=== PATIENT | female | born 2000 | race Caucasian/White ===

== ENCOUNTER 2022-04-12 14:04 | Inpatient (IN) | payer OTHER ==
[~2022-04-12] VITALS: Ht 162.6 cm; Wt 76.7 kg
[2022-04-12 14:00] VITALS: BP 105/61
[2022-04-12 15:29] LABS: PROTHROMBIN TIME 9.1 secs (10.8-13.4)
[2022-04-12 15:36] LABS: ANION GAP 15.9 (8-16); CARBON DIOXIDE 22.2 mmol/L (21-32); CREATININE 0.5 mg/dL (0.6-1.3); POTASSIUM 4.1 mmol/L (3.5-5.1); TOTAL BILIRUBIN 0.2 mg/dL (0.0-1.0)
[2022-04-12 15:37] LABS: BASOPHILS % (AUTO) 0.1 % (0.0-2.0); EOSINOPHILS # (AUTO) 0.1 K/uL (0-0.4); EOSINOPHILS % (AUTO) 0.7 % (0.0-4.0); HEMATOCRIT 31.5 % (36-48); HEMOGLOBIN 10.6 g/dL (12.0-16.0); LYMPHOCYTES # (AUTO) 1.9 K/uL (2.5-16.5); LYMPHOCYTES % (AUTO) 23.7 % (20.5-51.1); MEAN CORPUSCULAR HEMOGLOBIN 29 pg (27-31); MEAN CORPUSCULAR HGB CONC 34 g/dL (33-37); MONOCYTES # (AUTO) 0.5 K/uL (0.8-1.0); MONOCYTES % (AUTO) 5.8 % (1.7-9.3); NEUTROPHILS # (AUTO) 5.7 K/uL (1.8-7.7); NEUTROPHILS % (AUTO) 69.7 % (42.2-75.2); PLATELET COUNT (AUTO) 272 K/uL (140-450); RED BLOOD CELL COUNT(AUTO) 3.62 MIL/uL (4.20-5.40); RED CELL DISTRIBUTION WIDTH 15.1 % (11.6-13.7); WHITE BLOOD COUNT (AUTO) 8.2 K/uL (4.5-11.0)
[2022-04-12] MEDS: LACTATED RINGERS 1,000 ML IV SCH ×2 (15:40→17:28)
[2022-04-12 17:02] LABS: BILIRUBIN,URINE NEGATIVE (NEGATIVE); BLOOD, URINE TRACE-L (NEGATIVE); COLOR,URINE YELLOW (YELLOW); LEUKOCYTE ESTERASE ,URINE 3+ (NEGATIVE); NITRITE, URINE NEGATIVE (NEGATIVE); PH,URINE 6.5 (5.0-9.0); UGLUCOSE NEGATIVE (NEGATIVE)
[2022-04-12 17:18] LABS: APPEARANCE,URINE HAZY (CLEAR)
[2022-04-12 17:33] LABS: RBC,URINE 0-5 /HPF (0-5)
[2022-04-12] MEDS ORDERED: ceFAZolin 1,000 MG VIAL ONE (20:23)
[2022-04-12] MEDS ORDERED: MIDAZOLAM 2 MG/2 ML VIAL ONE (20:34)
[2022-04-12] MEDS ORDERED: MORPHINE PRES FREE 10 MG/10 ML AMP IV ONE (20:34)
[2022-04-12] MEDS ORDERED: diphenhydrAMINE 50 MG/ML VIAL ONE (20:53)
[2022-04-12] MEDS ORDERED: MEPERIDINE 25 MG/ML SYR IVP PRN (21:05)
[2022-04-12] MEDS ORDERED: HYDROmorphone 1 MG/ML AMP IVP PRN (21:05)
[2022-04-12] MEDS ORDERED: ONDANSETRON 4 MG/2 ML VIAL IVP PRN ×2 (21:05)
[2022-04-12] MEDS ORDERED: OXYTOCIN 20 UNITS in LACTATED RINGERS 1,000 ML IV SCH ×2 (21:05→23:40)
[2022-04-12] MEDS ORDERED: NALOXONE 0.4 MG/ML VIAL IVP PRN ×3 (21:05)
[2022-04-12] MEDS ORDERED: NALBUPHINE 10 MG/ML AMP IVP PRN (21:05)
[2022-04-12] MEDS ORDERED: diphenhydrAMINE 50 MG/ML VIAL IVP PRN ×2 (21:05)
--- NOTE | 2022-04-12 21:10 | NUR ---
CALLED TO L&D FOR . BABY CAME OUT CRYING, GOOD COLOR, AND MUSCLE TONE. BABY WAS PLACED UNDER WARMER. RN AND RT DRY/STIMULATE THE BABY WITH TOWELS. BULB SUCTION THE MOUTH 3x. BABY IN NO RESPIRATORY DISTRESS AT THIS TIME. RN WILL CONTINUE TO MONITOR BABY.
[2022-04-12] MEDS: OXYTOCIN 20 UNITS/LR PREMIX 1,000 ML IV ONE ×2 (22:13→22:25)
[2022-04-12] MEDS ORDERED: IBUPROFEN 600 MG TAB PO PRN (23:40)
[2022-04-12] MEDS ORDERED: oxyCODONE/APAP 5/325 MG 1 TAB TAB PO PRN (23:40)
[2022-04-13] MEDS: KETOROLAC 30 MG/ML VIAL IM/IVP SCH ×3 (00:03→12:00)
[2022-04-13] MEDS ORDERED: CAMERA MC ONE ×2 (03:26→19:40)
[2022-04-13] MEDS ORDERED: OXYTOCIN 20 UNITS/LR PREMIX 1,000 ML IV ONE (05:14)
[2022-04-13 08:19] LABS: BASOPHILS % (AUTO) 0.1 % (0.0-2.0); EOSINOPHILS % (AUTO) 0.3 % (0.0-4.0); HEMATOCRIT 27.8 % (36-48); HEMOGLOBIN 9.3 g/dL (12.0-16.0); LYMPHOCYTES # (AUTO) 1.3 K/uL (2.5-16.5); LYMPHOCYTES % (AUTO) 14.1 % (20.5-51.1); MEAN CORPUSCULAR HEMOGLOBIN 29 pg (27-31); MEAN CORPUSCULAR HGB CONC 34 g/dL (33-37); MEAN CORPUSCULAR VOLUME 86.4 fL (80-94); MONOCYTES # (AUTO) 0.5 K/uL (0.8-1.0); MONOCYTES % (AUTO) 5.2 % (1.7-9.3); NEUTROPHILS # (AUTO) 7.6 K/uL (1.8-7.7); NEUTROPHILS % (AUTO) 80.3 % (42.2-75.2); PLATELET COUNT (AUTO) 210 K/uL (140-450); RED BLOOD CELL COUNT(AUTO) 3.22 MIL/uL (4.20-5.40); RED CELL DISTRIBUTION WIDTH 15.4 % (11.6-13.7); WHITE BLOOD COUNT (AUTO) 9.5 K/uL (4.5-11.0)
--- NOTE | 2022-04-13 08:26 | NUR ---
PATIENT HAS BEEN SCREENED AND CATEGORIZED LOW NUTRITION RISK. PATIENT WILL BE SEEN WITHIN 7 DAYS OF ADMISSION. 04/19/[address]
[2022-04-13] MEDS ORDERED: IBUPROFEN 600 MG TAB PO PRN ×2 (15:06→15:20)
[2022-04-13] MEDS: oxyCODONE/APAP 5/325 MG 1 TAB TAB PO PRN (17:48)
[2022-04-13] MEDS: SIMETHICONE 80 MG TAB.CHEW PO PRN (17:49)
[2022-04-14] MEDS: oxyCODONE/APAP 5/325 MG 1 TAB TAB PO PRN ×2 (07:58→14:02)
[2022-04-14] MEDS: SIMETHICONE 80 MG TAB.CHEW PO PRN ×2 (07:58→14:02)
== END 2022-04-14 15:07 | disposition home or self-care (01) | DRG 540 ==
LOC: MLD 14:04 → MFCC 22:35
PROVIDERS: ADMIT Obstetrics & Gynecology; ATTEND Obstetrics & Gynecology
PROC: 10D00Z1 Extraction of Products of Conception, Low, Open Approach (ICD-10-PCS; principal; 2022-04-12 20:30)
PROC: 3E0234Z Introduction of Serum, Toxoid and Vaccine into Muscle, Percutaneous Approach (ICD-10-PCS; 2022-04-13)
DX: O41.03X0 Oligohydramnios, third trimester, not applicable or unspecified (principal); D62 Acute posthemorrhagic anemia; O36.8130 Decreased fetal movements, third trimester, not applicable or unspecified; O34.211 Maternal care for low transverse scar from previous cesarean delivery; Z20.822 Contact with and (suspected) exposure to COVID-19; Z3A.37 37 weeks gestation of pregnancy; Z37.0 Single live birth; Z23 Encounter for immunization
CPT/HCPCS: 36415; 80053; 81001; 85025; 85610; 85730; 86592; 86850; 86886; 86900; 86901; 87086; J0690; J1200; J1885; J2250; J2270; J2590; J2790; J7060; J7120

== ENCOUNTER 2022-05-07 12:24 | Emergency (ER) | payer OTHER ==
[~2022-05-07] VITALS: Ht 162.6 cm; Wt 71.7 kg
[2022-05-07 12:38] VITALS: BP 112/72
[2022-05-07] MEDS ORDERED: CEPH-588 PO (15:24)
[2022-05-07] MEDS ORDERED: IBUP-2213 PO (15:24)
--- NOTE | 2022-05-07 15:37 | NUR ---
SWABS HANDED TO RELIABILITY MANAGER KAREN
[2022-05-07 15:38] VITALS: BP 115/54
--- NOTE | 2022-05-07 15:38 | NUR ---
NO NURSING INTERVENTIONS DONE. Patient discharged with v/s stable. Written and verbal after care instructions given and explained. Patient alert, oriented and verbalized understanding of instructions. Ambulatory with steady gait. All questions addressed prior to discharge. ID band removed. Patient advised to follow up with PMD. Rx of KELFEX, MOTRIN given. Patient educated on indication of medication including possible reaction and side effects. Opportunity to ask questions provided and answered.
== END 2022-05-07 15:38 | disposition home or self-care (01) ==
LOC: MED 12:24
DX: Z48.01 Encounter for change or removal of surgical wound dressing (principal); Z20.822 Contact with and (suspected) exposure to COVID-19; N39.0 Urinary tract infection, site not specified; Z98.890 Other specified postprocedural states; Z79.1 Long term (current) use of non-steroidal anti-inflammatories (NSAID); Z79.2 Long term (current) use of antibiotics
CPT/HCPCS: 81002; 81025; 87086; 99283